=== PATIENT | male | born 1955 | race Caucasian/White ===

== ENCOUNTER 2019-07-23 13:40 | Emergency (ER) | payer BC, OTHER ==
[2019-07-23 13:50] VITALS: BP 130/90; PULSE 105; TEMP 98.2; BMI 31.1
[2019-07-23] MEDS ORDERED: DIPHTH,PERTUSS(ACELL),TET 0.5 ML DISP.SYRIN IM ONE ×2 (14:30→14:40)
--- NOTE | 2019-07-23 14:43 | PDOC ---
History of Present Illness - General Chief Complaint: Injury Stated Complaint: HEAD CUT Time Seen by Provider: 07/23/19 13:52 - History of Present Illness Initial Comments: 07/23/19 16:12 Patient is a 64-year-old male who presents to the ED with complaint of a head laceration that he sustained about 2 hours prior to arrival. He states he was fixing the window, and when he looked out of the window it fell onto his head. The window did not break. He states he did not pass out and denies any dizziness. The patient is not taking any blood thinners. Past History - Past Medical History Allergies/Adverse Reactions: Allergies Allergy/AdvReac Type Severity Reaction Status Date / Time No Known Allergies Allergy Verified 07/23/19 13:50 Home Medications: Ambulatory Orders NK [No Known Home Medication] 03/20/16 Anemia: No Asthma: No Cancer: No Cardiac Disorders: No CVA: No COPD: No CHF: No Dementia: No Diabetes: No GI Disorders: No Disorders: No HTN: No Hypercholesterolemia: No Liver Disease: No Seizures: No Thyroid Disease: No - Surgical History Orthopedic Surgery: Yes (shoulder sx as child) - Psycho Social/Smoking Cessation Hx Smoking History: Never smoked Have you smoked in the past 12 months: No Hx Alcohol Use: Yes Drug/Substance Use Hx: No Substance Use Type: Alcohol Hx Substance Use Treatment: No Review of Systems - Review of Systems Comments:: 07/23/19 16:15 - Review of Systems Able to Perform ROS?: Yes Constitutional: No: Fever, Chills, Loss of Appetite, Night Sweats, Weakness HEENTM: No: Eye Pain, Vision changes, Ear Pain, Throat Pain, Throat Swelling, Mouth Pain, Difficulty Swallowing; positive scalp laceration Respiratory: No: Cough, Shortness of Breath, Wheezing, Sputum Production Cardiac (ROS): No: Chest Pain, Chest Tightness, Palpitations, Irregular Heart Beat, Edema ABD/GI: No: Nausea, Vomiting, Abdominal Pain, Diarrhea Musculoskeletal: No: Muscle Pain, Back Pain, Joint Pain, Muscle Weakness, Neck Pain Integumentary: No: Lesions, Rash Neurological: No: Headache, Numbness, Tingling, Weakness, Speech Difficulties *Physical Exam - Vital Signs Last Vital Signs Temp Pulse Resp BP Pulse Ox 98.2 F 105 H 16 130/90 96 07/23/19 13:48 07/23/19 13:48 07/23/19 13:48 07/23/19 13:48 07/23/19 13:48 - Physical Exam 07/23/19 16:16 - Physical Exam General Appearance: Nourished, Appropriately Dressed, No Distress HEENT: EOMI, Normal Voice, No Pharyngeal Erythema, No Muffled/Hoarse voice, No Tonsillar Exudate, No Tonsillar Erythema, No Nasal Congestion, No Rhinorrhea, Hearing Grossly Normal, TMs Normal, no hemotympanum or pritchett sign. There is a 3 cm irregular shaped laceration to the left occiput. There is minimal active bleeding. There is no gaping. There is no galea involvement. Neck: Supple, No Lymphadenopathy (R), No Lymphadenopathy (L), No Rigidity, No Decreased range of motion Respiratory/Chest: Lungs Clear, Normal Breath Sounds. No Respiratory Distress, No Accessory Muscle Use Cardiovascular: Regular Rhythm, Regular Rate, S1, S2 Gastrointestinal/Abdominal: Normal Bowel Sounds, Soft. Non-tender, No Guarding, No Rebound, No Rigidity Musculoskeletal: Normal Inspection. No Decreased Range of Motion Extremity: Normal Capillary Refill, Normal Inspection Integumentary: Normal Color, Dry. 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 Plan: -Staple repair performed -Wound care instructions given -Boostrix given -Patient to return in 7 days for staple removal. -The patient has declined a head CT in the emergency department. He is not on any blood thinners. Discharge - Discharge Information Problems reviewed: Yes Clinical Impression/Diagnosis: Laceration of head Qualifiers: Encounter type: initial encounter Location of open wound of head: scalp Foreign body presence: without foreign body Qualified Code(s): S01.01XA - Laceration without foreign body of scalp, initial encounter Condition: Stable Disposition: HOME - Follow up/Referral Referrals: Sylvie Akins MD [Primary Care Provider] - - Patient Discharge Instructions Patient Printed Discharge Instructions: DI for Laceration Repair -- Brad Additional Instructions: Keep the wound clean and dry until 07/25/2019. After that you can wash the wound once daily with warm water and soap. Allowed to dry completely. You do not have to cover the wound. You have 6 brad placed. Return in 7 days to have the brad removed. - Post Discharge Activity
== END 2019-07-23 14:45 | disposition home or self-care (01) ==
LOC: JERFT 13:40
PROC: 0HQ0XZZ Repair Scalp Skin, External Approach (ICD-10-PCS; principal; 2019-07-23)
DX: S01.01XA Laceration without foreign body of scalp, initial encounter (principal); W22.8XXA Striking against or struck by other objects, initial encounter
CPT/HCPCS: 90715; 99282-25